=== PATIENT | male | born 1970 | race Caucasian/White ===

== ENCOUNTER 2021-04-15 13:49 | Emergency (ER) | payer OTHER, SELFPAY ==
[2021-04-15 13:51] VITALS: BMI 37.3
--- NOTE | 2021-04-15 14:03 | XRR_ITS ---
PROCEDURE INFORMATION: Exam: XR Chest Exam date and time: 04/15/2021 2:03 PM Age: 50 years old Clinical indication: Pain; Chest pressure; Additional info: Cp TECHNIQUE: Imaging protocol: XR of the chest. Views: 1 view. COMPARISON: No relevant prior studies available. FINDINGS: Lungs: Unremarkable. No consolidation. Pleural spaces: Unremarkable. No pleural effusion. No pneumothorax. Heart/Mediastinum: Unremarkable. No cardiomegaly. Bones/joints: Unremarkable. XR/XR chest 1V portable [id number] IMPRESSION: No acute findings.
[2021-04-15 14:07] VITALS: BP 148/110; PULSE 112; RESP 21; TEMP 36.9; O2SAT 95
[2021-04-15 14:18] LABS: Basophils # 0.1 10^3/uL (0.0-0.1); Basophils % 0.5 %; Eosinophils # 0.4 10^3/uL (0.0-0.8); Eosinophils % 4.3 %; Hematocrit 43.1 % (42.0-52.0); Lymphocytes # 5.1 10^3/uL (0.8-4.8); Lymphocytes % 49.8 %; Mean Corpuscular HGB Conc 34.8 g/dL (30.0-36.0); Mean Corpuscular Hemoglobin 31.2 pg (28.0-34.0); Mean Corpuscular Volume 89.6 fL (80-94); Mean Platelet Volume 9.7 fL (7.4-10.4); Monocytes # 0.7 10^3/uL (0.2-0.9); Monocytes % 7.1 %; Neutrophils # 3.93 10^3/uL (1.8-7.7); Neutrophils % 38.1 %; Nucleated Red Blood Cells % 0 %; Platelet Count 223 10^3/cmm (130-400); Red Blood Count 4.81 10^6/uL (4.1-5.3); Red Cell Distribution Width 12.4 % (12.1-15.1); White Blood Count 10.3 10^3/uL (4.0-10.0)
--- NOTE | 2021-04-15 14:28 | W.ED.ALCOHOL ---
HPI - Alcohol General: Chief Complaint: Alcohol Stated Complaint: ETOH; VIOLENT BEHAVIOR Time Seen by Provider: 04/15/21 13:56 History of Present Illness: HPI narrative: 50-year-old male who presents from EMS after he was leaving a [place] restaurant he had complained of some chest pain and so his friend called the paramedics and when they arrived patient became combative threatening to kill the health officer if he did not leave them alone and since he was having chest pain police basically left him with EMS. He did become a little combative in route and EMS gave him some ketamine. He does have a history of being violent when he uses alcohol. His significant other is here and states he had for gout silence and a Effie and he had complained of some stomach pain at the restaurant so somebody gave him a Tums. He did recently injure his left shoulder but she says it is definitely mechanical and that he uses his right arm to help lift up his left arm. He denies any chest pain currently he is apparently under the influence however not known how much is related to alcohol and how much related to the ketamine. Upon arrival he did not want to be here and was not cooperative with performing any type of diagnostic test therefore he was placed in four-point restraints his fianc?e is here and agrees and thinks we should leave him in them until he can sober up a little bit. blood sugar was 81 HPI is limited as patient has flight of ideas and wanders off with his thoughts and comments Review of Systems Narrative: Review of systems limited due to patient's intoxication he denies chest pain at this time Left shoulder pain per significant other from trauma She was told that he had complained of chest pain but he has not complained of any to her review of systems otherwise limited due to his intoxication [facility] ED PFSH: Surgical History History of carpal tunnel release of both wrists Physical Exam Narrative: EXAM NARRATIVE: General: alert talkative, not oriented to place or staff but is to his GF, no distress Head: atraumatic HEENT: normal eyes, injected conjunctiva, normal hearing, normal external nose, normal mouth, mucous membranes moist Neck: FROM, trachea midline Chest: normal expansion, no gross deformities Resp: normal speech, no retractions, no accessory muscle use, CTA bilaterally Cardio: regular rate and rhythm and no murmur, no peripheral edema, normal peripheral pulses GI: soft, flat non tender, no guarding normal BS : deferred Musculoskeletal: FROM, no pain or gross deformities Neuro: a/o appropriate for age, no gross motor or sensory deficits, CN II-XII grossly intact, normal coordination, slurred speech, verbal outbursts trying to get out of bed Skin: no rashes Psych: not cooperative, try to redirect then yells out Course Vital Signs: Vital signs: Vital Signs Temperature 98.4 F 04/15/21 14:07 Pulse Rate 112 H 04/15/21 14:07 Respiratory Rate 21 H 04/15/21 14:07 Blood Pressure 148/110 04/15/21 14:07 Pulse Oximetry 95 04/15/21 14:07 MDM - Alcohol MDM Narrative: Medical decision making narrative: Patient's fianc? says he does get violent and combative when he drinks but she feels he did not have enough alcohol to act this way explained her however he did have ketamine in route as well. We will do a cardiac work-up she also says he is taking quite a bit of Tylenol for her shoulder so we will check a level His blood sugar was only 81 with EMS and he had just literally been in a [place] restaurant eaten as well as had a effie so I find that a little bit odd. Patient at 1530 is awake alert he sitting upright he is appropriate he is cracking jokes he is fine he denies any suicidal homicidal or homicidal ideation he denies ever saying he had chest pain but the fianc? said he did complain of it he was reluctant to let us repeat a troponin I did credit support counselor him both that this is not clearance of coronary artery disease and that if he has further chest pain he is getting need further work-up. She feels comfortable taking him home he is appropriate he is clinically sober I did discuss with him to keep an eye on his blood sugars they need to check it at various times throughout the day to see if he is hypoglycemic Lab Data: Labs: Lab Results 04/15/21 04/15/21 04/15/21 Range/Units 13:03 13:03 13:03 WBC 10.3 H (4.0-10.0) 10^3/ uL RBC 4.81 (4.1-5.3) 10^6/u L Hgb 15.0 (11.7-16.6) g/dL Hct 43.1 (42.0-52.0) % MCV 89.6 (80-94) fL MCH 31.2 (28.0-34.0) pg MCHC 34.8 (30.0-36.0) g/dL RDW 12.4 (12.1-15.1) % Plt Count 223 (130-400) 10^3/c mm MPV 9.7 (7.4-10.4) fL Neut % (Auto) 38.1 % Lymph % (Auto) 49.8 % [place] % (Auto) 7.1 % Eos % (Auto) 4.3 % Baso % (Auto) 0.5 % Neut # (Auto) 3.93 (1.8-7.7) 10^3/u L Lymph # (Auto) 5.1 H (0.8-4.8) 10^3/u L [place] # (Auto) 0.7 (0.2-0.9) 10^3/u L Eos # (Auto) 0.4 (0.0-0.8) 10^3/u L Baso # (Auto) 0.1 (0.0-0.1) 10^3/u L Nucleated RBC % (a uto) 0 % Nucleated RBCs # 0.0 /100WBC Sodium 141 (136-145) mmol/L Potassium 3.7 (3.5-5.1) mmol/L Chloride 105 (98-107) mmol/L Carbon Dioxide 21 L (22-29) mmol/L Anion Gap 18.7 (5-19) BUN 15 (6-20) mg/dL Creatinine 0.8 (0.7-1.2) mg/dL GFR Calculation 102.3 (90-130) mL/min Glucose 70 (65-115) mg/dL Calculated Osmolal ity 291 (285-295) mOsm/k g Calcium 8.9 (8.5-10.5) mg/dL Total Bilirubin 0.4 (0.15-1.2) mg/dL AST 25 (0-40) U/L ALT 32 (0-41) U/L Alkaline Phosphata se 66 (40-130) IU/L Troponin T Baselin e 12 (0-15) ng/L Troponin T 120 Min lonnie (0-15) ng/L Delta Troponin T (0-10) ABS# Total Protein 6.5 L (6.6-8.7) g/dL Albumin 4.4 (3.5-5.2) g/dL Globulin 2.1 (1.3-4.6) g/dL Lipase 15 (13-60) U/L Acetaminophen (10-30) ug/mL Ethyl Alcohol 182 H (0-10) mg/dL 04/15/21 04/15/21 Range/Units 13:03 15:29 WBC (4.0-10.0) 10^3/ uL RBC (4.1-5.3) 10^6/u L Hgb (11.7-16.6) g/dL Hct (42.0-52.0) % MCV (80-94) fL MCH (28.0-34.0) pg MCHC (30.0-36.0) g/dL RDW (12.1-15.1) % Plt Count (130-400) 10^3/c mm MPV (7.4-10.4) fL Neut % (Auto) % Lymph % (Auto) % [place] % (Auto) % Eos % (Auto) % Baso % (Auto) % Neut # (Auto) (1.8-7.7) 10^3/u L Lymph # (Auto) (0.8-4.8) 10^3/u L [place] # (Auto) (0.2-0.9) 10^3/u L Eos # (Auto) (0.0-0.8) 10^3/u L Baso # (Auto) (0.0-0.1) 10^3/u L Nucleated RBC % (a uto) % Nucleated RBCs # /100WBC Sodium (136-145) mmol/L Potassium (3.5-5.1) mmol/L Chloride (98-107) mmol/L Carbon Dioxide (22-29) mmol/L Anion Gap (5-19) BUN (6-20) mg/dL Creatinine (0.7-1.2) mg/dL GFR Calculation (90-130) mL/min Glucose (65-115) mg/dL Calculated Osmolal ity (285-295) mOsm/k g Calcium (8.5-10.5) mg/dL Total Bilirubin (0.15-1.2) mg/dL AST (0-40) U/L ALT (0-41) U/L Alkaline Phosphata se (40-130) IU/L Troponin T Baselin e (0-15) ng/L Troponin T 120 Min lonnie 6.63 (0-15) ng/L Delta Troponin T -5.37 L (0-10) ABS# Total Protein (6.6-8.7) g/dL Albumin (3.5-5.2) g/dL Globulin (1.3-4.6) g/dL Lipase (13-60) U/L Acetaminophen < 5.0 L (10-30) ug/mL Ethyl Alcohol (0-10) mg/dL Discharge Plan Discharge Patient Disposition: Home Clinical Impression: Alcoholic intoxication Qualifiers: Complication of substance-induced condition: with unspecified complication Qualified Code(s): F10.929 - Alcohol use, unspecified with intoxication, unspecified Condition: Stable Prescriptions: No Action dexamethasone sodium phosphate 10 mg/mL solution 10 mg IM ONCE Qty: 1 RF: 0 promethazine-DM 6.25-15 mg/5 mL syrup 5 - 10 ml PO Q6H PRN (Reason: cough) Qty: 220 RF: 0 Discharge Orders: Discharge ED (Routine); Ordered 04/15/21 Ordered By: Iveth Stone Activity Restrictions/Additional Instructions: Recommend you monitor your blood sugars at random times throughout the day it should consistently be below about 80-120. If it drops too low then you will need to eat frequent small meals throughout the day. Recommend you follow-up with your provider. The ER is not indicative of a full cardiac work-up it is only screening to see if you had any active heart attack today but it does not exclude blockages. If you have persistent chest pain shortness of breath exertional chest pain or shortness of breath is very important you follow-up or return to the emergency department for further evaluation of potential coronary artery disease. Thank you for choosing [facility] for your healthcare needs today. Please realize this is an emergency room and that we are providing you with a medical screening exam and this may not be complete and all inclusive of all the testing and or work up that you may need to determine your ailment or severity of your illness. It is very important that you follow up as instructed or that you return to the Emergency Department should you have concerns or if your condition changes or worsens in any way. Coding Level of Care Code ED Travel Service Consultant for Jeffry Leung
[2021-04-15 14:31] LABS: Alanine Aminotransferase 32 U/L (0-41); Albumin Level 4.4 g/dL (3.5-5.2); Alcohol Level 182 mg/dL (0-10); Alkaline Phosphatase 66 IU/L (40-130); Anion Gap 18.7 (5-19); Aspartate Amino Transferase 25 U/L (0-40); Blood Urea Nitrogen 15 mg/dL (6-20); Calcium 8.9 mg/dL (8.5-10.5); Carbon Dioxide 21 mmol/L (22-29); Chloride 105 mmol/L (98-107); Creatinine Clr Calc Pharmacy 150.7113; Globulin 2.1 g/dL (1.3-4.6); Glomerular Filtration Rate 102.3 mL/min (90-130); Glucose 70 mg/dL (65-115); Lipase 15 U/L (13-60); Osmolality Calculated 291 mOsm/kg (285-295); Potassium 3.7 mmol/L (3.5-5.1); Sodium 141 mmol/L (136-145); Total Bilirubin 0.4 mg/dL (0.15-1.2); Total Protein 6.5 g/dL (6.6-8.7)
[2021-04-15 14:56] LABS: Acetaminophen < 5.0 ug/mL (10-30)
[2021-04-15 15:06] LABS: Troponin(5th) Baseline 12 ng/L (0-15)
[2021-04-15 15:59] LABS: Troponin 5 2HR 6.63 ng/L (0-15)
[2021-04-15 16:09] LABS: Troponin 5 2HR Delta -5.37 ABS# (0-10)
== END 2021-04-15 16:15 | disposition home or self-care (01) ==
PROVIDERS: Emergency Provider Emergency Medicine
DX: F10.929 Alcohol use, unspecified with intoxication, unspecified (principal); Y90.6 Blood alcohol level of 120-199 mg/100 ml
CPT/HCPCS: 71045; 80053; 80307; 83690; 84484; 85025; 99281